=== PATIENT | female | born 2000 | race Caucasian/White ===

== ENCOUNTER 2023-06-28 18:26 | Emergency (ER) | payer OTHER ==
[~2023-06-28] VITALS: Wt 49.9 kg
== END 2023-06-28 21:04 | disposition home or self-care (01) ==
LOC: EDBD 18:26 → ED 18:26
DX: S40.021A Contusion of right upper arm, initial encounter (principal); S61.001A Unspecified open wound of right thumb without damage to nail, initial encounter; V43.52XA Car driver injured in collision with other type car in traffic accident, initial encounter; Y93.89 Activity, other specified; Y92.488 Other paved roadways as the place of occurrence of the external cause; Y99.8 Other external cause status